=== PATIENT | female | born 1960 | race Caucasian/White ===

== ENCOUNTER 2018-08-17 13:35 | Observation (INO) | payer SELFPAY ==
[2018-08-17 15:17] LABS: BASO # 0.06 K/mm3 (0.0-2.0); BASO % 1.5 % (0.0-3.0); EOS # 0.1 (0.0-0.7); EOS % 2.2 % (1.5-5.0); GRAN # 1.57 (1.4-6.5); GRAN % 38.7 % (50.0-68.0); HEMOGLOBIN 14.1 g/dL (12.0-16.0); LYMPH # 2.1 (1.2-3.4); LYMPH % 51.2 % (22.0-35.0); MEAN CELL VOLUME 87.2 fl (80.0-105.0); MEAN CORPUSCULAR HGB CONC 33.3 g/dl (31.0-37.0); MEAN PLATELET VOLUME 12.9 fl (7.0-11.0); MONO # 0.3 (0.1-0.6); MONO % 6.4 % (1.0-6.0); RBC 4.86 10^6/uL (3.5-6.1); RED CELL DISTRIBUTION WIDTH 12.4 % (11.5-14.5); WHITE BLOOD COUNT 4.1 10^3/uL (4.5-11.0)
--- NOTE | 2018-08-17 15:20 | CT ---
Date of service: 08/17/2018 PROCEDURE: CT HEAD WITHOUT CONTRAST. HISTORY: fall LOC COMPARISON: 01/04/2015 TECHNIQUE: Axial computed tomography images were obtained through the head/brain without intravenous contrast. Radiation dose: Total exam DLP = 925.37 mGy-cm. This CT exam was performed using one or more of the following dose reduction techniques: Automated exposure control, adjustment of the mA and/or kV according to patient size, and/or use of iterative reconstruction technique. FINDINGS: HEMORRHAGE: No intracranial hemorrhage. BRAIN: No mass effect or edema. No atrophy or chronic microvascular ischemic changes. VENTRICLES: Unremarkable. No hydrocephalus. CALVARIUM: Unremarkable. PARANASAL SINUSES: Unremarkable as visualized. No significant inflammatory changes. MASTOID AIR CELLS: Unremarkable as visualized. No inflammatory changes. OTHER FINDINGS: None. IMPRESSION: No acute intracranial findings
[2018-08-17 15:28] LABS: ALB/GLOB RATIO 1.3 (1.1-1.8); ALBUMIN 4.6 g/dL (3.0-4.8); ALT/SGPT 32 U/L (7-56); AST/SGOT 26 U/L (14-36); BLOOD UREA NITROGEN 6 mg/dL (7-21); CALCIUM 9.8 mg/dL (8.4-10.5); GFR NON-AFRICAN AMERICAN > 60
[2018-08-17] MEDS ORDERED: Iohexol 350 MG/100 ML VIAL ONE (15:39)
--- NOTE | 2018-08-17 15:40 | ED PDOC ---
Arrival/HPI - General Historian: Patient - History of Present Illness Narrative History of Present Illness (Text): pt is a 58 yr old F with no PMH who has not visited a doctor for many years who presents with numerous complaints including ACUÑA, intermittent weakness of all four extremities, intermittent dizziness and recent fall with LOC, intermittent numbness and tingling of extremities. She additionally complains of intermittent neck pain, chest pain, SOB, "seeing spots" when dizzy. Patient states she has a family history of stroke and cardiovascular illness. She currently endorses only headache. She currently denies any facial droop, speech difficulty, confusion, chest pain, shortness of breath, abdominal pain, dysuria, stool changes and extremity pain/weakness. 08/17/18 15:35 Time/Duration: > month (3) Symptom Course: Intermittent <Krista Keyes - Last Filed: 08/17/18 17:40> <Sheldon Baca - Last Filed: 08/17/18 19:29> - General Chief Complaint: Headache Time Seen by Provider: 08/17/18 13:41 Past Medical History - Provider Review Nursing Documentation Reviewed: Yes - Past History Past History: No Previous - Tetanus Immunization Tetanus Immunization: Unknown - Reproductive Menopause: Yes - Past Medical History Past Medical History: No Previous - Cardiac Hx Cardiac Disorders: Yes Hx Hypertension: Yes - Pulmonary Hx Respiratory Disorders: No - Neurological Hx Neurological Disorder: No - HEENT Hx HEENT Disorder: No - Renal Hx Renal Disorder: Yes Hx Kidney Stones: Yes (LEFT) - Endocrine/Metabolic Hx Endocrine Disorders: No - Hematological/Oncological Hx Blood Disorders: No - Integumentary Hx Dermatological Disorder: No - Musculoskeletal/Rheumatological Hx Musculoskeletal Disorders: No Hx Falls: Yes (last tuesday, lost LOC) - Genitourinary/Gynecological Hx Genitourinary Disorders: No (BX LEFT BREAST MASS) - Psychiatric Hx Psychophysiologic Disorder: No Hx Substance Use: No - Past Surgical History Past Surgical History: No Previous - Surgical History Hx Cardiac Catheterization: Yes - Anesthesia Hx Anesthesia: Yes Hx Anesthesia Reactions: No Hx Malignant Hyperthermia: No - Suicidal Assessment Feels Threatened In Home Enviroment: No <Krista Keyes - Last Filed: 08/17/18 17:40> Family/Social History - Physician Review Nursing Documentation Reviewed: Yes Family/Social History: CVA/TIA, CAD/IN Smoking Status: Never Smoked Hx Alcohol Use: No Hx Substance Use: No Hx Substance Use Treatment: No <Krista Keyes - Last Filed: 08/17/18 17:40> Allergies/Home Meds <Krista Keyes - Last Filed: 08/17/18 17:40> <Sheldon Baca - Last Filed: 08/17/18 19:29> Allergies/Adverse Reactions: Allergies No Known Allergies Allergy (Verified 01/04/15 16:53) Home Medications: Home Meds Medication Instructions Recorded Confirmed No Known Home Med 01/04/15 08/17/18 Review of Systems - Physician Review All systems were reviewed & negative as marked: Yes - Review of Systems Constitutional: Normal. absent: Fevers Eyes: absent: Vision Changes (not currently) Respiratory: absent: SOB, Cough Cardiovascular: absent: Chest Pain Gastrointestinal: absent: Abdominal Pain, Nausea, Vomiting Musculoskeletal: Neck Pain. absent: Back Pain Skin: absent: Rash, Skin Lesions, Laceration, Abscess Neurological: Headache. absent: Dizziness, Focal Weakness, Gait Changes, Disequilibrium <Krista Keyes - Last Filed: 08/17/18 17:40> Physical Exam Vital Signs Reviewed: Yes Vital Signs Temp Pulse Resp BP Pulse Ox 08/17/18 14:05 98.2 F 67 18 159/83 H 98 Temperature: Afebrile Blood Pressure: Hypertensive Pulse: Regular Respiratory Rate: Normal Appearance: Positive for: Well-Appearing, Non-Toxic, Comfortable Pain Distress: None Mental Status: Positive for: Alert and Oriented X 3 - Systems Exam Head: Present: Atraumatic, Normocephalic Extroacular Muscles: Present: EOMI Mouth: Present: Moist Mucous Membranes Neck: Present: Normal Range of Motion. No: Meningeal Signs, MIDLINE TENDERNESS, Paraspinal Tenderness Respiratory/Chest: Present: Clear to Auscultation. No: Respiratory Distress, Accessory Muscle Use Cardiovascular: Present: Regular Rate and Rhythm, Normal S1, S2. No: Murmurs Abdomen: No: Tenderness, Distention, Peritoneal Signs Upper Extremity: Present: Normal Inspection, Normal ROM, NORMAL PULSES, Neurovascularly Intact, Capillary Refill < 2s, Norm 2-Pt Discrimination. No: Cyanosis, Edema, Tenderness, Swelling, Erythema, Deformity Lower Extremity: Present: Normal Inspection, NORMAL PULSES, Normal ROM, Neurova scularly Intact, Capillary Refill < 2 s. No: Edema, CALF TENDERNESS, Cyanosis, Georgie's Sign, Swelling, Erythema, Deformity Neurological: Present: GCS=15, CN II-XII Intact, Speech Normal, Motor Func Grossly Intact, Normal Sensory Function, Gait Normal, Normal 2Pt Descrimination Skin: Present: Warm, Dry, Normal Color. No: Rashes Psychiatric: Present: Alert, Oriented x 3, Normal Insight, Normal Concentration <Krista Keyes - Last Filed: 08/17/18 17:40> Vital Signs Temp Pulse Resp BP Pulse Ox 08/17/18 19:03 77 20 126/85 100 08/17/18 17:36 98.3 F 86 20 124/74 99 08/17/18 16:39 98.7 F 90 18 124/57 L 100 08/17/18 14:05 98.2 F 67 18 159/83 H 98 <Sheldon Baca - Last Filed: 08/17/18 19:29> Medical Decision Making ED Course and Treatment: Impression: 58 yr old female with recent LOC d/t dizziness and weakness, no current dizziness/weakness, current ACUÑA Plan: CBC CMP CT head CTA head and neck reassess and dispo 08/17/18 15:[address] Mccoy, agreed to evaluate for admission 08/17/18 17:02 - Lab Interpretations Lab Results: Total Bilirubin 0.4 mg/dL (0.2-1.3) 08/17/18 15:13 AST 26 U/L (14-36) 08/17/18 15:13 ALT 32 U/L (7-56) 08/17/18 15:13 Alkaline Phosphatase 76 U/L (38-126) 08/17/18 15:13 Total Protein 8.2 g/dL (5.8-8.3) 08/17/18 15:13 Albumin 4.6 g/dL (3.0-4.8) 08/17/18 15:13 Globulin 3.6 gm/dL 08/17/18 15:13 Albumin/Globulin Ratio 1.3 (1.1-1.8) 08/17/18 15:13 08/17/18 15:13 08/17/18 15:13 Lab Results 08/17/18 15:13: Sodium 140, Potassium 3.8, Chloride 104, Carbon Dioxide 26, Anion Gap 13, BUN 6 L, Creatinine 0.6 L, Est GFR ( Amer) > 60, Est GFR ( Non-Af Amer) > 60, Random Glucose 101, Calcium 9.8, Phosphorus 3.6, Magnesium 2.0, Total Bilirubin 0.4, AST 26, ALT 32, Alkaline Phosphatase 76, Total Protein 8.2, Albumin 4.6, Globulin 3.6, Albumin/Globulin Ratio 1.3 08/17/18 15:13: WBC 4.1 L, RBC 4.86, Hgb 14.1, Hct 42.4, MCV 87.2, MCH 29.0, MCHC 33.3, RDW 12.4, Plt Count 258, MPV 12.9 H, Gran % 38.7 L, Lymph % (Auto) 51.2 H, [place] % (Auto) 6.4 H, Eos % (Auto) 2.2, Baso % (Auto) 1.5, Gran # 1.57, Lymph # (Auto) 2.1, [place] # (Auto) 0.3, Eos # (Auto) 0.1, Baso # (Auto) 0.06 - RAD Interpretation Narrative RAD Interpretations (Text): 08/17/18 15:[address] 08/17/18 14:29 IMPRESSION: No acute intracranial findings Radiology Results Head CT 08/17/18 14:29 IMPRESSION: No acute intracranial findings Head/Neck CTA 08/17/18 15:17 IMPRESSION: Normal CT Angiography of the neck. CT Angiography of the Brain. HISTORY: dizziness, weakness COMPARISON: None available. TECHNIQUE: CT angiography of the intracranial arteries was performed. Coronal and sagittal maximum intensity projection reformated images were generated. Radiation dose: Total exam DLP = 402.04 mGy-cm. This CT exam was performed using one or more of the following dose reduction techniques: Automated exposure control, adjustment of the mA and/or kV according to patient size, and/or use of iterative reconstruction technique. FINDINGS: INTERNAL CEREBRAL ARTERIES: Unremarkable. The skull base, petrous, cavernous and supraclinoid segments are bilaterally widely patent. ANTERIOR CEREBRAL ARTERIES: Unremarkable. A1 and A2 segments are widely patent. Smaller distal branches unremarkable, as visualized. MIDDLE CEREBRAL ARTERIES: Unremarkable. M1 and M2 segments are widely patent. Perisylvian branches grossly symmetric. POSTERIOR CIRCULATION: Basilar Artery: Unremarkable. Distal Vertebral Arteries: Unremarkable. Posterior Cerebral Arteries: Unremarkable. Posterior Inferior Cerebellar Arteries: Unremarkable. ANEURYSM/ VASCULAR MALFORMATIONS: None. OTHER FINDINGS: None. IMPRESSION: Unremarkable CT Angiography of the Brain. 08/17/18 18:30 Radiology Orders: 08/17/18 14:29 HEAD W/O CONTRAST [CT] Stat 08/17/18 15:17 CTA HEAD & NECK BUNDLE [CT] Stat <Krista Keyes - Last Filed: 08/17/18 17:40> ED Course and Treatment: 08/17/18 19:26 Impression: 58 year old female presents to emergency department complaining of ACUÑA, intermittent weakness of all four extremities, intermittent dizziness and recent fall with LOC, intermittent numbness and tingling of extremities. In agreement with resident note which contains more details about the patient. Patient seen and evaluated with resident. Came up with plan and treatment together. Plan: -- Antivert -- Lovenox -- Labs -- Rehab (Physical Therapy) -- Urinalysis -- US - Lab Interpretations Lab Results: Troponin I < 0.01 ng/mL 08/17/18 19:00 Total Bilirubin 0.4 mg/dL (0.2-1.3) 08/17/18 15:13 AST 26 U/L (14-36) 08/17/18 15:13 ALT 32 U/L (7-56) 08/17/18 15:13 Alkaline Phosphatase 76 U/L (38-126) 08/17/18 15:13 Total Protein 8.2 g/dL (5.8-8.3) 08/17/18 15:13 Albumin 4.6 g/dL (3.0-4.8) 08/17/18 15:13 Globulin 3.6 gm/dL 08/17/18 15:13 Albumin/Globulin Ratio 1.3 (1.1-1.8) 08/17/18 15:13 Urine Color Light yellow (YELLOW) 08/17/18 18:45 Urine Appearance Clear (CLEAR) 08/17/18 18:45 Urine pH 7.0 (4.7-8.0) 08/17/18 18:45 Ur Specific Bruce 1.010 (1.005-1.035) 08/17/18 18:45 Urine Protein Negative mg/dL (<30 mg/dL) 08/17/18 18:45 Urine Glucose (UA) Negative mg/dL (NEGATIVE) 08/17/18 18:45 Urine Ketones Negative mg/dL (NEGATIVE) 08/17/18 18:45 Urine Blood Negative (NEGATIVE) 08/17/18 18:45 Urine Nitrate Negative (NEGATIVE) 08/17/18 18:45 Urine Bilirubin Negative (NEGATIVE) 08/17/18 18:45 Urine Urobilinogen 0.2 E.U./dL (<1 E.U./dL) 08/17/18 18:45 Ur Leukocyte Esterase Negative Dick/uL (NEGATIVE) 08/17/18 18:45 - RAD Interpretation Radiology Orders: 08/17/18 14:29 HEAD W/O CONTRAST [CT] Stat 08/17/18 15:17 CTA HEAD & NECK BUNDLE [CT] Stat - Medication Orders Current Medication Orders: Enoxaparin Sodium (Lovenox) 40 mg SC DAILY KI; Protocol Meclizine HCl (Antivert) 12.5 mg PO Q6H PRN PRN Reason: Dizziness Discontinued Medications Acetaminophen (Tylenol 325mg Tab) 650 mg PO STAT STA Stop: 08/17/18 16:03 Last Admin: 08/17/18 17:23 Dose: 650 mg MAR Pain/Vitals Document 08/17/18 17:23 DM (Rec: 08/17/18 17:24 DM [id number]) Pain Reassessment Is This A Pain ReAssessment? No Presence of Pain Presence of Pain Yes Pain Scale Used Protocol: PSCALES Pain Scale Used Numeric Location Left, Right or Bilateral Right Upper or Lower Lower Pain Location Body Site Arm Intensity 2 Sodium Chloride (Sodium Chloride 0.9%) 1,000 mls @ 999 mls/hr IV .Q1H1M STA Stop: 08/17/18 17:02 Last Admin: 08/17/18 17:24 Dose: 999 mls/hr eMAR Start Stop Document 08/17/18 17:24 DM (Rec: 08/17/18 17:25 DM [facility] [id number]) Intravenous Solution Start Date 08/17/18 Start Time 17:25 Metoclopramide HCl (Reglan) 10 mg IVP ACHS KI Last Admin: 08/17/18 18:55 Dose: Not Given Non-Admin Reason: Patient Refused IVP Administration Document 08/17/18 18:55 DM (Rec: 08/17/18 18:55 DM [facility] [id number]) Charges for Administration # of IVP Administrations 0 <Sheldon Baca - Last Filed: 08/17/18 19:29> Disposition/Present on Arrival - Present on Arrival Any Indicators Present on Arrival: No History of DVT/PE: No History of Uncontrolled Diabetes: No Urinary Catheter: No History of Decub. Ulcer: No History Surgical Site Infection Following: None - Disposition Have Diagnosis and Disposition been Completed?: Yes Disposition Time: 17:02 Patient Plan: Admission <Krista Keyes - Last Filed: 08/17/18 17:40> <Sheldon Baca - Last Filed: 08/17/18 19:29> - Disposition Diagnosis: Paresthesia Disposition: HOSPITALIZED Patient Problems: Current Active Problems Problem Status Onset Paresthesia Acute Condition: STABLE
[2018-08-17] MEDS ORDERED: Sodium Chloride 0.9% 1,000 ML IV STA (16:02)
--- NOTE | 2018-08-17 16:38 | CT ---
Date of service: 08/17/2018 PROCEDURE: CT Angiography of the neck with contrast HISTORY: dizziness, weakness COMPARISON: None. TECHNIQUE: Contiguous axial images of the neck were obtained from the level of the skull-base to the superior mediastinum in the arteriographic phase of enhancement. Coronal and sagittal reformats or also generated. IV contrast dose: 100 cc of Omni 350 Radiation dose: Total exam DLP = 402.04 mGy-cm. This CT exam was performed using one or more of the following dose reduction techniques: Automated exposure control, adjustment of the mA and/or kV according to patient size, and/or use of iterative reconstruction technique. FINDINGS: RIGHT CAROTID ARTERIES: Common Carotid Artery: Normal. Carotid Bifurcation: Normal. Internal Carotid Artery:Normal. External Carotid Artery (proximal branches): Normal. LEFT CAROTID ARTERIES: Common Carotid Artery: Normal. Carotid Bifurcation: Normal. Internal Carotid Artery:Normal. External Carotid Artery (proximal branches): Normal. VERTEBRAL ARTERIES: Right Vertebral Artery: Normal. Left Vertebral Artery: Normal. OTHER FINDINGS: no aortic atherosclerotic calcification or mural plaque present. IMPRESSION: Normal CT Angiography of the neck. CT Angiography of the Brain. HISTORY: dizziness, weakness COMPARISON: None available. TECHNIQUE: CT angiography of the intracranial arteries was performed. Coronal and sagittal maximum intensity projection reformated images were generated. Radiation dose: Total exam DLP = 402.04 mGy-cm. This CT exam was performed using one or more of the following dose reduction techniques: Automated exposure control, adjustment of the mA and/or kV according to patient size, and/or use of iterative reconstruction technique. FINDINGS: INTERNAL CEREBRAL ARTERIES: Unremarkable. The skull base, petrous, cavernous and supraclinoid segments are bilaterally widely patent. ANTERIOR CEREBRAL ARTERIES: Unremarkable. A1 and A2 segments are widely patent. Smaller distal branches unremarkable, as visualized. MIDDLE CEREBRAL ARTERIES: Unremarkable. M1 and M2 segments are widely patent. Perisylvian branches grossly symmetric. POSTERIOR CIRCULATION: Basilar Artery: Unremarkable. Distal Vertebral Arteries: Unremarkable. Posterior Cerebral Arteries: Unremarkable. Posterior Inferior Cerebellar Arteries: Unremarkable. ANEURYSM/ VASCULAR MALFORMATIONS: None. OTHER FINDINGS: None. IMPRESSION: Unremarkable CT Angiography of the Brain.
--- NOTE | 2018-08-17 17:12 | CP.PCM.HP ---
<Sheldon Baca - Last Filed: 08/17/18 19:26> Meds Allergies/Adverse Reactions: Allergies Allergy/AdvReac Type Severity Reaction Status Date / Time No Known Allergies Allergy Verified 01/04/15 16:53 Results - Vital Signs Recent Vital Signs: Last Vital Signs Temp 98.3 F 08/17/18 17:36 Pulse 77 08/17/18 19:03 Resp 20 08/17/18 19:03 BP 126/85 08/17/18 19:03 Pulse Ox 100 08/17/18 19:03 - Labs Result Diagrams: 08/17/18 15:13 08/17/18 15:13 Labs: Laboratory Results - last 24 hr 08/17/18 08/17/18 08/17/18 15:13 15:13 18:45 WBC 4.1 L RBC 4.86 Hgb 14.1 Hct 42.4 MCV 87.2 MCH 29.0 MCHC 33.3 RDW 12.4 Plt Count 258 MPV 12.9 H Gran % 38.7 L Lymph % (Auto) 51.2 H [place] % (Auto) 6.4 H Eos % (Auto) 2.2 Baso % (Auto) 1.5 Gran # 1.57 Lymph # (Auto) 2.1 [place] # (Auto) 0.3 Eos # (Auto) 0.1 Baso # (Auto) 0.06 Sodium 140 Potassium 3.8 Chloride 104 Carbon Dioxide 26 Anion Gap 13 BUN 6 L Creatinine 0.6 L Est GFR ( Amer) > 60 Est GFR (Non-Af Amer) > 60 Random Glucose 101 Calcium 9.8 Phosphorus 3.6 Magnesium 2.0 Total Bilirubin 0.4 AST 26 ALT 32 Alkaline Phosphatase 76 Troponin I Total Protein 8.2 Albumin 4.6 Globulin 3.6 Albumin/Globulin Ratio 1.3 Urine Color Light yellow Urine Appearance Clear Urine pH 7.0 Ur Specific [place] 1.010 Urine Protein Negative Urine Glucose (UA) Negative Urine Ketones Negative Urine Blood Negative Urine Nitrate Negative Urine Bilirubin Negative Urine Urobilinogen 0.2 Ur Leukocyte Esterase Negative 08/17/18 19:00 WBC RBC Hgb Hct MCV MCH MCHC RDW Plt Count MPV Gran % Lymph % (Auto) [place] % (Auto) Eos % (Auto) Baso % (Auto) Gran # Lymph # (Auto) [place] # (Auto) Eos # (Auto) Baso # (Auto) Sodium Potassium Chloride Carbon Dioxide Anion Gap BUN Creatinine Est GFR ( Amer) Est GFR (Non-Af Amer) Random Glucose Calcium Phosphorus Magnesium Total Bilirubin AST ALT Alkaline Phosphatase Troponin I < 0.01 Total Protein Albumin Globulin Albumin/Globulin Ratio Urine Color Urine Appearance Urine pH Ur Specific [place] Urine Protein Urine Glucose (UA) Urine Ketones Urine Blood Urine Nitrate Urine Bilirubin Urine Urobilinogen Ur Leukocyte Esterase <Robert Lujan L - Last Filed: 08/17/18 20:02> History of Present Illness - History of Present Illness History of Present Illness: Resident History & Physical for Hospitalist Service Patient is a 58 year old female with past medical history of CAD s/p cardiac cath and herniated cervical disc presenting with chief complaint of syncope that happened a week prior. Patient states that she was walking to her kitchen when she felt lightheaded and lost consciousness. She remembers waking up on the floor and feeling weak for several hours after. She denies tongue biting, bladder or bowel incontinence. She admits to occasionally seeing flashing lights, headache, numbness and tingling of upper and lower extremities. Denies any aggravating or alleviating factors. Denies fever, chills, chest pain, shortness of breath, abdominal pain, constipation, diarrhea, dysuria. As per family at bedside patient has been checking her blood pressure the past few days and SBP has been in 160s. PMH: CAD, herniated disc PSH: cardiac cath, breast biopsy SHx: denies alcohol, tobacco, illicit drug use FHx: father (HTN, stroke) Allergies: NKDA Home meds: none PMD: none Present on Admission - Present on Admission Any Indicators Present on Admission: No Review of Systems - Review of Systems All systems: reviewed and no additional remarkable complaints except (as stated in HPI) Past Patient History - Tetanus Immunizations Tetanus Immunization: Unknown - Past Social History Smoking Status: Never Smoked - CARDIAC Hx Cardiac Disorders: Yes Hx Hypertension: Yes - PULMONARY Hx Respiratory Disorders: No - NEUROLOGICAL Hx Neurological Disorder: No - HEENT Hx HEENT Problems: No - RENAL Hx Chronic Kidney Disease: Yes Hx Kidney Stones: Yes (LEFT) - ENDOCRINE/METABOLIC Hx Endocrine Disorders: No - HEMATOLOGICAL/ONCOLOGICAL Hx Blood Disorders: No - INTEGUMENTARY Hx Dermatological Problems: No - MUSCULOSKELETAL/RHEUMATOLOGICAL Hx Musculoskeletal Disorders: No Hx Falls: Yes (last tuesday, lost LOC) - GENITOURINARY/GYNECOLOGICAL Hx Genitourinary Disorders: No (BX LEFT BREAST MASS) - PSYCHIATRIC Hx Psychophysiologic Disorder: No Hx Substance Use: No - SURGICAL HISTORY Hx Cardiac Catheterization: Yes - ANESTHESIA Hx Anesthesia: Yes Hx Anesthesia Reactions: No Hx Malignant Hyperthermia: No Results - Vital Signs Recent Vital Signs: Last Vital Signs Temp 98.7 F 08/17/18 16:39 Pulse 90 08/17/18 16:39 Resp 18 08/17/18 16:39 BP 124/57 L 08/17/18 16:39 Pulse Ox 100 08/17/18 16:39 - Labs Result Diagrams: 08/17/18 15:13 08/17/18 15:13 Labs: Laboratory Results - last 24 hr 08/17/18 08/17/18 15:13 15:13 WBC 4.1 L RBC 4.86 Hgb 14.1 Hct 42.4 MCV 87.2 MCH 29.0 MCHC 33.3 RDW 12.4 Plt Count 258 MPV 12.9 H Gran % 38.7 L Lymph % (Auto) 51.2 H [place] % (Auto) 6.4 H Eos % (Auto) 2.2 Baso % (Auto) 1.5 Gran # 1.57 Lymph # (Auto) 2.1 [place] # (Auto) 0.3 Eos # (Auto) 0.1 Baso # (Auto) 0.06 Sodium 140 Potassium 3.8 Chloride 104 Carbon Dioxide 26 Anion Gap 13 BUN 6 L Creatinine 0.6 L Est GFR ( Amer) > 60 Est GFR (Non-Af Amer) > 60 Random Glucose 101 Calcium 9.8 Phosphorus 3.6 Magnesium 2.0 Total Bilirubin 0.4 AST 26 ALT 32 Alkaline Phosphatase 76 Total Protein 8.2 Albumin 4.6 Globulin 3.6 Albumin/Globulin Ratio 1.3 Assessment & Plan - Assessment and Plan (Free Text) Assessment: Patient is a 58 year old female with past medical history of CAD s/p cardiac cath presenting with chief complaint of syncope. Plan: Syncope - Head CT shows no acute intracranial findings - Head/neck CTA unremarkable - EKG shows NSR - ECHO 2014 showed EF 67%, normal LV function - followup repeat ECHO, EEG, orthostatics, TSH - PT eval Numbness - cervical spine CT from 2014 showed disc bulge at C5-6 with bilateral spondylitic foraminal stenosis secondary to uncinate hypertrophy - B12, folate - Neurochecks - Neurology consulted. Appreciate recs. PPX - Lovenox 40 mg SC daily, SCDs Case discussed with Dr. Nadine Lujan PGY-1 - Date & Time Date: 08/17/18 Time: 17:07 <Max Mccyo - Last Filed: 08/18/18 17:46> Results - Vital Signs Recent Vital Signs: Last Vital Signs Temp 97.5 F L 08/18/18 06:00 Pulse 63 08/18/18 10:00 Resp 20 08/18/18 06:00 BP 123/80 08/18/18 06:00 Pulse Ox 99 08/18/18 06:00 - Labs Result Diagrams: 08/18/18 06:00 08/18/18 06:00 Labs: Laboratory Results - last 24 hr 08/17/18 08/17/18 08/18/18 18:45 19:00 06:00 WBC 4.4 L RBC 4.43 Hgb 12.4 Hct 39.0 MCV 88.0 MCH 28.0 MCHC 31.8 RDW 12.5 Plt Count 244 MPV 12.5 H Gran % 28.1 L Lymph % (Auto) 58.4 H [place] % (Auto) 8.7 H Eos % (Auto) 3.4 Baso % (Auto) 1.4 Gran # 1.23 L Lymph # (Auto) 2.6 [place] # (Auto) 0.4 Eos # (Auto) 0.2 Baso # (Auto) 0.06 Sodium Potassium Chloride Carbon Dioxide Anion Gap BUN Creatinine Est GFR ( Amer) Est GFR (Non-Af Amer) Random Glucose Hemoglobin A1c Calcium Total Bilirubin AST ALT Alkaline Phosphatase Troponin I < 0.01 Total Protein Albumin Globulin Albumin/Globulin Ratio Triglycerides Cholesterol LDL Cholesterol Direct HDL Cholesterol Vitamin B12 Folate > 20.0 TSH 3rd Generation Urine Color Light yellow Urine Appearance Clear Urine pH 7.0 Ur Specific [place] 1.010 Urine Protein Negative Urine Glucose (UA) Negative Urine Ketones Negative Urine Blood Negative Urine Nitrate Negative Urine Bilirubin Negative Urine Urobilinogen 0.2 Ur Leukocyte Esterase Negative 08/18/18 08/18/18 08/18/18 06:00 06:00 06:00 WBC RBC Hgb Hct MCV MCH MCHC RDW Plt Count MPV Gran % Lymph % (Auto) [place] % (Auto) Eos % (Auto) Baso % (Auto) Gran # Lymph # (Auto) [place] # (Auto) Eos # (Auto) Baso # (Auto) Sodium 140 Potassium 4.3 Chloride 108 H Carbon Dioxide 27 Anion Gap 9 L BUN 7 Creatinine 0.7 Est GFR ( Amer) > 60 Est GFR (Non-Af Amer) > 60 Random Glucose 96 Hemoglobin A1c 5.9 Calcium 9.4 Total Bilirubin 0.3 AST 20 ALT 31 Alkaline Phosphatase 60 Troponin I Total Protein 6.9 Albumin 3.9 Globulin 3.0 Albumin/Globulin Ratio 1.3 Triglycerides 77 Cholesterol 180 LDL Cholesterol Direct 105 HDL Cholesterol 47 Vitamin B12 430 Folate TSH 3rd Generation 5.74 H Urine Color Urine Appearance Urine pH Ur Specific [place] Urine Protein Urine Glucose (UA) Urine Ketones Urine Blood Urine Nitrate Urine Bilirubin Urine Urobilinogen Ur Leukocyte Esterase Attending/Attestation - Attestation I have personally seen and examined this patient.: Yes I have fully participated in the care of the patient.: Yes I have reviewed all pertinent clinical information: Yes Notes (Text): 08/18/18 17:46 Attending note; Patient seen and examined with resident in the ER. Patient's brothers by the bedside. Patient is alert and awake. Complaining of nonspecific numbness. Complaining of neck pain. Patient is a 58 year old female with past medical history herniated cervical disc presenting with chief complaint of syncope that happened a week prior. Patient states that she was walking to her kitchen when she felt lightheaded and lost consciousness. Patient has complained of nonspecific numbness and weakness all over her body. 1. Syncope; patient complains of generalized nonspecific symptoms. Questionable loss of consciousness. No history of injury, tongue bite or incontinence. CT head is negative. CT of head and neck is negative. Neurology evaluation requested. Possible anxiety related issues suspected. 2. Orthostatic blood pressure ordered. EKG normal. Troponin 1 negative. Monitor closely in telemetry. Upon discharge patient will follow-up with PMD Dr. Ibarra.
[2018-08-17 18:54] LABS: URINE BILIRUBIN NEGATIVE (NEGATIVE); URINE BLOOD NEGATIVE (NEGATIVE); URINE GLUCOSE (UA) NEGATIVE (NEGATIVE); URINE LEUKOCYTE ESTERASE NEGATIVE Leu/uL (NEGATIVE); URINE PROTEIN NEGATIVE mg/dL (<30 mg/dL); URINE UROBILINOGEN 0.2 E.U./dL (<1 E.U./dL)
[2018-08-17 19:02] LABS: URINE APPEARANCE CLEAR (CLEAR); URINE COLOR LIGHT YELLOW (YELLOW)
[2018-08-17 19:24] LABS: TROPONIN I < 0.01 ng/mL
--- NOTE | 2018-08-17 20:18 | CARD ---
APPROVED REPORT Date of service: 08/17/2018 EKG Measurement Heart [id number] <Conclusion> Normal sinus rhythm Normal Electrocardiogram
[2018-08-18 01:46] VITALS: BMI 29.5
[2018-08-18 06:44] LABS: BASO # 0.06 K/mm3 (0.0-2.0); BASO % 1.4 % (0.0-3.0); EOS # 0.2 (0.0-0.7); EOS % 3.4 % (1.5-5.0); GRAN # 1.23 (1.4-6.5); GRAN % 28.1 % (50.0-68.0); HEMOGLOBIN 12.4 g/dL (12.0-16.0); LYMPH # 2.6 (1.2-3.4); LYMPH % 58.4 % (22.0-35.0); MEAN CORPUSCULAR HGB CONC 31.8 g/dl (31.0-37.0); MEAN PLATELET VOLUME 12.5 fl (7.0-11.0); MONO # 0.4 (0.1-0.6); MONO % 8.7 % (1.0-6.0); RBC 4.43 10^6/uL (3.5-6.1); RED CELL DISTRIBUTION WIDTH 12.5 % (11.5-14.5); WHITE BLOOD COUNT 4.4 10^3/uL (4.5-11.0)
[2018-08-18 07:09] VITALS: BP 123/80; RESP 20; TEMP 97.5; O2SAT 99
[2018-08-18 07:13] LABS: LDL CHOLESTEROL 105 mg/dL (0-129)
[2018-08-18 07:26] LABS: ALB/GLOB RATIO 1.3 (1.1-1.8); ALBUMIN 3.9 g/dL (3.0-4.8); ALT/SGPT 31 U/L (7-56); AST/SGOT 20 U/L (14-36); BLOOD UREA NITROGEN 7 mg/dL (7-21); CALCIUM 9.4 mg/dL (8.4-10.5); GFR NON-AFRICAN AMERICAN > 60; HDL CHOLESTEROL 47 mg/dL (29-60)
[2018-08-18] MEDS ORDERED: Enoxaparin 40 mg Syringe SC SCH (10:00)
--- NOTE | 2018-08-18 10:22 | US ---
HISTORY: Leg pain and swelling. Evaluate for DVT PHYSICIAN(S): Tashi Gloria MD. TECHNIQUE: Duplex sonography and color-flow Doppler with graded compression were used to evaluate the deep venous systems of both lower extremities. FINDINGS: The visualized deep venous systems of both lower extremities are sonographically normal and compressible. Normal wave forms and augmentation are seen. There is no sonographic evidence for deep venous thrombosis in the visualized segments of both lower extremities. IMPRESSION: No sonographic evidence for deep venous thrombosis in the visualized segments of both lower extremities.
--- NOTE | 2018-08-18 10:24 | CP.PCM.CON ---
<River Valladares - Last Filed: 08/18/18 16:58> History of Present Illness - History of Present Illness History of Present Illness: Patient is a 58 year old female with past medical history of CAD s/p cardiac cath and herniated cervical disc presenting with complaints of syncope a week prior as well as 8/10 headache, heaviness, numbness and tingling tingling down upper and lower extremities bilaterally since last week. Patient states that she was walking to her kitchen when she felt lightheaded and lost consciousness and later awakening on the floor with her dishes all over her. Patient states she has experienced many similar episodes in the past. She denies tongue biting, bladder or bowel incontinence. She admits to occasionally seeing flashing lights, headache, numbness and tingling of upper and lower extremities. Denies any aggravating or alleviating factors. Denies fever, chills, chest pain, shortness of breath, abdominal pain, constipation, diarrhea, dysuria. As per family at bedside patient has been checking her blood pressure the past few days and SBP has been in 160s for which brother hs been giving his own BP medications to control. PMH: CAD, herniated disc PSH: cardiac cath, breast biopsy SHx: denies alcohol, tobacco, illicit drug use FHx: father (HTN, stroke) Allergies: NKDA Home meds: none PMD: none Review of Systems - Review of Systems All systems: reviewed and no additional remarkable complaints except (what's mentioned in HPI) Past Patient History - Tetanus Immunizations Tetanus Immunization: Unknown - Past Social History Smoking Status: Never Smoked - CARDIAC Hx Cardiac Disorders: Yes Hx Hypertension: Yes - PULMONARY Hx Respiratory Disorders: No - NEUROLOGICAL Hx Neurological Disorder: No - HEENT Hx HEENT Problems: No - RENAL Hx Kidney Stones: Yes (LEFT) - ENDOCRINE/METABOLIC Hx Endocrine Disorders: No - HEMATOLOGICAL/ONCOLOGICAL Hx Blood Disorders: No - INTEGUMENTARY Hx Dermatological Problems: No - MUSCULOSKELETAL/RHEUMATOLOGICAL Hx Musculoskeletal Disorders: No Hx Falls: Yes (syncopal episode on Tuesday08/12/18) - GENITOURINARY/GYNECOLOGICAL Hx Genitourinary Disorders: No (BX LEFT BREAST MASS) - PSYCHIATRIC Hx Psychophysiologic Disorder: No Hx Substance Use: No - SURGICAL HISTORY Hx Surgeries: Yes (CARDIAC CATH) Hx Cardiac Catheterization: Yes - ANESTHESIA Hx Anesthesia: Yes Hx Anesthesia Reactions: No Hx Malignant Hyperthermia: No Meds Home Medications: Home Medication List Medication Instructions Recorded Confirmed Type RX: Magnesium Oxide [Magnesium] 400 mg PO BID #60 capsule 08/18/18 Rx Allergies/Adverse Reactions: Allergies Allergy/AdvReac Type Severity Reaction Status Date / Time No Known Allergies Allergy Verified 01/04/15 16:53 - Medications Medications: Current Medications Enoxaparin Sodium (Lovenox) 40 mg SC DAILY KI; Protocol Last Admin: 08/18/18 09:17 Dose: 40 mg Meclizine HCl (Antivert) 12.5 mg PO Q6H PRN PRN Reason: Dizziness Last Admin: 08/18/18 09:17 Dose: 12.5 mg Physical Exam - Head Exam Head Exam: ATRAUMATIC, NORMAL INSPECTION, NORMOCEPHALIC - Eye Exam Eye Exam: EOMI, Normal appearance - ENT Exam ENT Exam: Mucous Membranes Moist - Neck Exam Neck exam: Positive for: Normal Inspection - Respiratory Exam Respiratory Exam: Clear to Auscultation Bilateral, NORMAL BREATHING PATTERN - Cardiovascular Exam Cardiovascular Exam: REGULAR RHYTHM, +S1, +S2 - GI/Abdominal Exam GI & Abdominal Exam: Normal Bowel Sounds - Extremities Exam Extremities exam: Positive for: normal inspection - Back Exam Back exam: NORMAL INSPECTION - Neurological Exam Neurological exam: Alert, CN II-XII Intact, Oriented x3 - Expanded Neurological Exam Expanded Speech: Fluid Speech Cranial nerves: EOM's Intact: Normal, Facial Sensation: Normal, Tongue Deviation: Normal Cerebellar Function: Finger to Nose: Normal, Heel to [place]: Normal, Romberg: Normal Upper motor neuron: Babinski Sign: Normal, Enmanuel Neglect: Normal, Pronator Drift: Normal, Sensory Extinction: Normal Sensory exam: Lower Extremity 2 Point Discrimination: Normal, Lower Extremity Light Touch: Normal, Lower Extremity Pin Prick: Normal, Upper Extremity 2 Point Discrimination: Normal, Upper Extremity Light Touch: Normal, Upper Extremity Pin Prick: Normal Neuro motor strength exam: Left Upper Extremity: 4, Right Upper Extremity: 4, Left Lower Extremity: 4, Right Lower Extremity: 4 DTR: Patellar Left: 0 Coma Scale Eye Opening: SPONTANEOUS Coma Scale Motor Response: OBEYS COMMANDS - Psychiatric Exam Psychiatric exam: Normal Affect, Normal Mood - Skin Skin Exam: Normal Color, Warm Results - Vital Signs Recent Vital Signs: Last Vital Signs Temp 97.5 F L 08/18/18 06:00 Pulse 60 08/18/18 06:00 Resp 20 08/18/18 06:00 BP 123/80 08/18/18 06:00 Pulse Ox 99 08/18/18 06:00 - Labs Result Diagrams: 08/18/18 06:00 08/18/18 06:00 Labs: Laboratory Results - last 24 hr 08/17/18 08/17/18 08/17/18 15:13 15:13 18:45 WBC 4.1 L RBC 4.86 Hgb 14.1 Hct 42.4 MCV 87.2 MCH 29.0 MCHC 33.3 RDW 12.4 Plt Count 258 MPV 12.9 H Gran % 38.7 L Lymph % (Auto) 51.2 H [place] % (Auto) 6.4 H Eos % (Auto) 2.2 Baso % (Auto) 1.5 Gran # 1.57 Lymph # (Auto) 2.1 [place] # (Auto) 0.3 Eos # (Auto) 0.1 Baso # (Auto) 0.06 Sodium 140 Potassium 3.8 Chloride 104 Carbon Dioxide 26 Anion Gap 13 BUN 6 L Creatinine 0.6 L Est GFR ( Amer) > 60 Est GFR (Non-Af Amer) > 60 Random Glucose 101 Calcium 9.8 Phosphorus 3.6 Magnesium 2.0 Total Bilirubin 0.4 AST 26 ALT 32 Alkaline Phosphatase 76 Troponin I Total Protein 8.2 Albumin 4.6 Globulin 3.6 Albumin/Globulin Ratio 1.3 Triglycerides Cholesterol LDL Cholesterol Direct HDL Cholesterol TSH 3rd Generation Urine Color Light yellow Urine Appearance Clear Urine pH 7.0 Ur Specific [place] 1.010 Urine Protein Negative Urine Glucose (UA) Negative Urine Ketones Negative Urine Blood Negative Urine Nitrate Negative Urine Bilirubin Negative Urine Urobilinogen 0.2 Ur Leukocyte Esterase Negative 08/17/18 08/18/18 08/18/18 19:00 06:00 06:00 WBC 4.4 L RBC 4.43 Hgb 12.4 Hct 39.0 MCV 88.0 MCH 28.0 MCHC 31.8 RDW 12.5 Plt Count 244 MPV 12.5 H Gran % 28.1 L Lymph % (Auto) 58.4 H [place] % (Auto) 8.7 H Eos % (Auto) 3.4 Baso % (Auto) 1.4 Gran # 1.23 L Lymph # (Auto) 2.6 [place] # (Auto) 0.4 Eos # (Auto) 0.2 Baso # (Auto) 0.06 Sodium 140 Potassium 4.3 Chloride 108 H Carbon Dioxide 27 Anion Gap 9 L BUN 7 Creatinine 0.7 Est GFR ( Amer) > 60 Est GFR (Non-Af Amer) > 60 Random Glucose 96 Calcium 9.4 Phosphorus Magnesium Total Bilirubin 0.3 AST 20 ALT 31 Alkaline Phosphatase 60 Troponin I < 0.01 Total Protein 6.9 Albumin 3.9 Globulin 3.0 Albumin/Globulin Ratio 1.3 Triglycerides 77 Cholesterol 180 LDL Cholesterol Direct 105 HDL Cholesterol 47 TSH 3rd Generation Urine Color Urine Appearance Urine pH Ur Specific [place] Urine Protein Urine Glucose (UA) Urine Ketones Urine Blood Urine Nitrate Urine Bilirubin Urine Urobilinogen Ur Leukocyte Esterase 08/18/18 06:00 WBC RBC Hgb Hct MCV MCH MCHC RDW Plt Count MPV Gran % Lymph % (Auto) [place] % (Auto) Eos % (Auto) Baso % (Auto) Gran # Lymph # (Auto) [place] # (Auto) Eos # (Auto) Baso # (Auto) Sodium Potassium Chloride Carbon Dioxide Anion Gap BUN Creatinine Est GFR ( Amer) Est GFR (Non-Af Amer) Random Glucose Calcium Phosphorus Magnesium Total Bilirubin AST ALT Alkaline Phosphatase Troponin I Total Protein Albumin Globulin Albumin/Globulin Ratio Triglycerides Cholesterol LDL Cholesterol Direct HDL Cholesterol TSH 3rd Generation 5.74 H Urine Color Urine Appearance Urine pH Ur Specific [place] Urine Protein Urine Glucose (UA) Urine Ketones Urine Blood Urine Nitrate Urine Bilirubin Urine Urobilinogen Ur Leukocyte Esterase Assessment & Plan - Assessment and Plan (Free Text) Assessment: B/L Upper and Lower extremity paresthesias -r/o Vitamin B12, Folate deficiency -Vitamin B12 supplementation since patient is vegan Headaches -Most likely tension headache -Toradol -Magnesium oxide 400 mg BID -Patient can follow up with a neurologist as outpatient for further management Syncopal episodes -CTA head and neck reveal no abnormalities -Recommend linq cardiac device to monitor for arrythmias -Follow up with Primary care physician and church business administrator. Discussed extensively with patient that she needs to establish care with a PMD so she can follow up with a church business administrator. Discussed with patient that a linq monitor would help detect abnormalities that we may not have been able to detect while here inhouse since the duration is longer. Discussed plan in full detail with patient and her family. <Korya,Rhett - Last Filed: 08/20/18 13:43> Results - Vital Signs Recent Vital Signs: Last Vital Signs Temp 97.5 F L 08/18/18 06:00 Pulse 63 08/18/18 10:00 Resp 20 08/18/18 06:00 BP 123/80 08/18/18 06:00 Pulse Ox 99 08/18/18 06:00 - Labs Result Diagrams: 08/18/18 06:00 08/18/18 06:00 Attending/Attestation - Attestation I have personally seen and examined this patient.: Yes I have fully participated in the care of the patient.: Yes I have reviewed all pertinent clinical information: Yes Notes (Text): I agree with the assessment and plan: -Follow up with Primary care physician and church business administrator. Discussed extensively with patient that she needs to establish care with a PMD so she can follow up with a church business administrator. Discussed with patient that a linq monitor would help detect abnormalities that we may not have been able to detect while here inhouse since the duration is longer.
[2018-08-18 10:40] VITALS: PULSE 63
[2018-08-18 12:58] LABS: FOLATE > 20.0 ng/mL
--- NOTE | 2018-08-18 13:53 | CT ---
Date of service: 08/18/2018 PROCEDURE: CT Cervical Spine without contrast HISTORY: Neuropathy Evaluation COMPARISON: None available. TECHNIQUE: Axial computed tomography images were obtained of the cervical spine without the use of intravenous contrast. Coronal and sagittal reformatted images were created and reviewed. Radiation dose: Total exam DLP = 575.48 mGy-cm. This CT exam was performed using one or more of the following dose reduction techniques: Automated exposure control, adjustment of the mA and/or kV according to patient size, and/or use of iterative reconstruction technique. FINDINGS: VERTEBRAE: No fracture. Normal alignment. No destructive bony lesion. DISCS/SPINAL CANAL/NEURAL FORAMINA: No significant central canal or neural foraminal stenosis. Disc degeneration at C5-6 with anterior osteophytes PARASPINAL SOFT TISSUES: Unremarkable. OTHER FINDINGS: None. IMPRESSION: Unremarkable CT of the cervical spine.
[2018-08-18] MEDS ORDERED: Magnesium Oxide 400 mg Tab UD PO SCH (14:30)
--- NOTE | 2018-08-18 15:39 | CP.PCM.DIS ---
<Trey Roman - Last Filed: 08/18/18 15:47> Provider - Provider Date of Admission: 08/17/18 17:02 Attending physician: Max Mccoy MD Primary care physician: NO PRIMARY CARE PROVIDER Consults: 08/17/18 17:03 Physician Consult Stat Comment: Consulting Provider: Rhett Bull Consulting Physician: Rhett Bull Reason for Consult: parasthesias Time Spent in preparation of Discharge (in minutes): 35 Hospital Course - Lab Results Lab Results: Most Recent Lab Values WBC 4.4 10^3/uL (4.5-11.0) L 08/18/18 06:00 RBC 4.43 10^6/uL (3.5-6.1) 08/18/18 06:00 Hgb 12.4 g/dL (12.0-16.0) 08/18/18 06:00 Hct 39.0 % (36.0-48.0) 08/18/18 06:00 MCV 88.0 fl (80.0-105.0) 08/18/18 06:00 MCH 28.0 pg (25.0-35.0) 08/18/18 06:00 MCHC 31.8 g/dl (31.0-37.0) 08/18/18 06:00 RDW 12.5 % (11.5-14.5) 08/18/18 06:00 Plt Count 244 10^3/uL (120.0-450.0) 08/18/18 06:00 MPV 12.5 fl (7.0-11.0) H 08/18/18 06:00 Gran % 28.1 % (50.0-68.0) L 08/18/18 06:00 Lymph % (Auto) 58.4 % (22.0-35.0) H 08/18/18 06:00 [place] % (Auto) 8.7 % (1.0-6.0) H 08/18/18 06:00 Eos % (Auto) 3.4 % (1.5-5.0) 08/18/18 06:00 Baso % (Auto) 1.4 % (0.0-3.0) 08/18/18 06:00 Gran # 1.23 (1.4-6.5) L 01/11/19 06:00 Lymph # (Auto) 2.6 (1.2-3.4) 08/18/18 06:00 [place] # (Auto) 0.4 (0.1-0.6) 08/18/18 06:00 Eos # (Auto) 0.2 (0.0-0.7) 08/18/18 06:00 Baso # (Auto) 0.06 K/mm3 (0.0-2.0) 08/18/18 06:00 Sodium 140 mmol/L (132-148) 08/18/18 06:00 Potassium 4.3 mmol/L (3.6-5.0) 08/18/18 06:00 Chloride 108 mmol/L (98-107) H 08/18/18 06:00 Carbon Dioxide 27 mmol/L (21-33) 08/18/18 06:00 Anion Gap 9 (10-20) L 08/18/18 06:00 BUN 7 mg/dL (7-21) 08/18/18 06:00 Creatinine 0.7 mg/dl (0.7-1.2) 08/18/18 06:00 Est GFR ( Amer) > 60 08/18/18 06:00 Est GFR (Non-Af Amer) > 60 08/18/18 06:00 Random Glucose 96 mg/dL (70-110) 08/18/18 06:00 Hemoglobin A1c 5.9 % (4.2-6.5) 08/18/18 06:00 Calcium 9.4 mg/dL (8.4-10.5) 08/18/18 06:00 Phosphorus 3.6 mg/dL (2.5-4.5) 08/17/18 15:13 Magnesium 2.0 mg/dL (1.7-2.2) 08/17/18 15:13 Total Bilirubin 0.3 mg/dL (0.2-1.3) 08/18/18 06:00 AST 20 U/L (14-36) 08/18/18 06:00 ALT 31 U/L (7-56) 08/18/18 06:00 Alkaline Phosphatase 60 U/L (38-126) 08/18/18 06:00 Troponin I < 0.01 ng/mL 08/17/18 19:00 Total Protein 6.9 g/dL (5.8-8.3) 08/18/18 06:00 Albumin 3.9 g/dL (3.0-4.8) 08/18/18 06:00 Globulin 3.0 gm/dL 08/18/18 06:00 Albumin/Globulin Ratio 1.3 (1.1-1.8) 08/18/18 06:00 Triglycerides 77 mg/dL (35-160) 08/18/18 06:00 Cholesterol 180 mg/dL (130-200) 08/18/18 06:00 LDL Cholesterol Direct 105 mg/dL (0-129) 08/18/18 06:00 HDL Cholesterol 47 mg/dL (29-60) 08/18/18 06:00 Vitamin B12 430 pg/mL (239-931) 08/18/18 06:00 Folate > 20.0 ng/mL 08/17/18 19:00 TSH 3rd Generation 5.74 mIU/mL (0.46-4.68) H 08/18/18 06:00 Urine Color Light yellow (YELLOW) 08/17/18 18:45 Urine Appearance Clear (CLEAR) 08/17/18 18:45 Urine pH 7.0 (4.7-8.0) 08/17/18 18:45 Ur Specific [place] 1.010 (1.005-1.035) 08/17/18 18:45 Urine Protein Negative mg/dL (<30 mg/dL) 08/17/18 18:45 Urine Glucose (UA) Negative mg/dL (NEGATIVE) 08/17/18 18:45 Urine Ketones Negative mg/dL (NEGATIVE) 08/17/18 18:45 Urine Blood Negative (NEGATIVE) 08/17/18 18:45 Urine Nitrate Negative (NEGATIVE) 08/17/18 18:45 Urine Bilirubin Negative (NEGATIVE) 08/17/18 18:45 Urine Urobilinogen 0.2 E.U./dL (<1 E.U./dL) 08/17/18 18:45 Ur Leukocyte Esterase Negative Dick/uL (NEGATIVE) 08/17/18 18:45 - Hospital Course Hospital Course: 58 year old female with past medical history of CAD s/p cardiac cath and herniated cervical disc presenting with chief complaint of syncope that happened a week prior. Patient states that she was walking to her kitchen when she felt lightheaded and lost consciousness. She remembers waking up on the floor and feeling weak for several hours after. She denies tongue biting, bladder or bowel incontinence. She admits to occasionally seeing flashing lights, headache, numbness and tingling of upper and lower extremities. Denies any aggravating or alleviating factors. Denies fever, chills, chest pain, shortness of breath, abdominal pain, constipation, diarrhea, dysuria. As per family at bedside patient has been checking her blood pressure the past few days and SBP has been in 160s. CT head, CTA of head and neck, and Ct of cervical spine were unremarkable. The patient underwent an echocardiogram that was not interpreted. The patient's Vitamin B12 and folate were also within normal limits. Neurology was consulted and recommended the patient get a Linq cardiac device to monitor for arrhythmias as well as Magnesium Oxide 400 mg BID. The patient was discharged with the below written instructions and recommendations. - Date & Time of H&P Date of H&P: 08/18/18 Time of H&P: 15:49 Discharge Exam - Head Exam Head Exam: ATRAUMATIC, NORMOCEPHALIC - Eye Exam Eye Exam: EOMI, Normal appearance, PERRL - Respiratory Exam Respiratory Exam: Clear to PA & Lateral, NORMAL BREATHING PATTERN - Cardiovascular Exam Cardiovascular Exam: RRR, +S1, +S2 - Extremities Exam Extremities exam: normal inspection - Neurological Exam Neurological exam: Alert, CN II-XII Intact, Oriented x3 - Psychiatric Exam Psychiatric exam: Normal Affect, Normal Mood - Skin Skin Exam: Dry, Intact, Normal Color, Warm Discharge Plan - Discharge Medications Prescriptions: Magnesium Oxide [Magnesium] 400 mg PO BID #60 capsule - Follow Up Plan Condition: STABLE Disposition: HOME/ ROUTINE Instructions: Chest Pain (DC), Paresthesias (DC), Hand Numbness Additional Instructions: Please follow up with your primary care doctor within 3-5 days of discharge. If you do not have one you can make an appointment with our [facility]. Please take a multivitamin daily which is over the counter. Recommend to follow up with cardiology as outpatient for possible holter monitor. You were sent a prescription of Magnesium oxide 400mg ONE PILL TWICE PER DAY. If your symptoms return, please go to the nearest emergency department. [place]errals: [facility] [place] [facility] [place] [facility] [place] - Follow up with primary PCP,NO [Primary Care Provider] - Follow up with primary <Rangasamy,Ajantha - Last Filed: 08/18/18 17:48> Provider - Provider Date of Admission: 08/17/18 17:02 Attending physician: Max Mccoy MD Primary care physician: NO PRIMARY CARE PROVIDER Consults: 08/17/18 17:03 Physician Consult Stat Comment: Consulting Provider: Rhett Bull Consulting Physician: Rhett Bull Reason for Consult: [facility] Course - Lab Results Lab Results: Most Recent Lab Values WBC 4.4 10^3/uL (4.5-11.0) L 08/18/18 06:00 RBC 4.43 10^6/uL (3.5-6.1) 08/18/18 06:00 Hgb 12.4 g/dL (12.0-16.0) 08/18/18 06:00 Hct 39.0 % (36.0-48.0) 08/18/18 06:00 MCV 88.0 fl (80.0-105.0) 08/18/18 06:00 MCH 28.0 pg (25.0-35.0) 08/18/18 06:00 MCHC 31.8 g/dl (31.0-37.0) 08/18/18 06:00 RDW 12.5 % (11.5-14.5) 08/18/18 06:00 Plt Count 244 10^3/uL (120.0-450.0) 08/18/18 06:00 MPV 12.5 fl (7.0-11.0) H 08/18/18 06:00 Gran % 28.1 % (50.0-68.0) L 08/18/18 06:00 Lymph % (Auto) 58.4 % (22.0-35.0) H 08/18/18 06:00 [place] % (Auto) 8.7 % (1.0-6.0) H 08/18/18 06:00 Eos % (Auto) 3.4 % (1.5-5.0) 08/18/18 06:00 Baso % (Auto) 1.4 % (0.0-3.0) 08/18/18 06:00 Gran # 1.23 (1.4-6.5) L 08/18/18 06:00 Lymph # (Auto) 2.6 (1.2-3.4) 08/18/18 06:00 [place] # (Auto) 0.4 (0.1-0.6) 08/18/18 06:00 Eos # (Auto) 0.2 (0.0-0.7) 08/18/18 06:00 Baso # (Auto) 0.06 K/mm3 (0.0-2.0) 08/18/18 06:00 Sodium 140 mmol/L (132-148) 08/18/18 06:00 Potassium 4.3 mmol/L (3.6-5.0) 08/18/18 06:00 Chloride 108 mmol/L (98-107) H 08/18/18 06:00 Carbon Dioxide 27 mmol/L (21-33) 08/18/18 06:00 Anion Gap 9 (10-20) L 08/18/18 06:00 BUN 7 mg/dL (7-21) 08/18/18 06:00 Creatinine 0.7 mg/dl (0.7-1.2) 08/18/18 06:00 Est GFR ( Amer) > 60 08/18/18 06:00 Est GFR (Non-Af Amer) > 60 08/18/18 06:00 Random Glucose 96 mg/dL (70-110) 08/18/18 06:00 Hemoglobin A1c 5.9 % (4.2-6.5) 08/18/18 06:00 Calcium 9.4 mg/dL (8.4-10.5) 08/18/18 06:00 Phosphorus 3.6 mg/dL (2.5-4.5) 08/17/18 15:13 Magnesium 2.0 mg/dL (1.7-2.2) 08/17/18 15:13 Total Bilirubin 0.3 mg/dL (0.2-1.3) 08/18/18 06:00 AST 20 U/L (14-36) 08/18/18 06:00 ALT 31 U/L (7-56) 08/18/18 06:00 Alkaline Phosphatase 60 U/L (38-126) 08/18/18 06:00 Troponin I < 0.01 ng/mL 08/17/18 19:00 Total Protein 6.9 g/dL (5.8-8.3) 08/18/18 06:00 Albumin 3.9 g/dL (3.0-4.8) 08/18/18 06:00 Globulin 3.0 gm/dL 08/18/18 06:00 Albumin/Globulin Ratio 1.3 (1.1-1.8) 08/18/18 06:00 Triglycerides 77 mg/dL (35-160) 08/18/18 06:00 Cholesterol 180 mg/dL (130-200) 08/18/18 06:00 LDL Cholesterol Direct 105 mg/dL (0-129) 08/18/18 06:00 HDL Cholesterol 47 mg/dL (29-60) 08/18/18 06:00 Vitamin B12 430 pg/mL (239-931) 08/18/18 06:00 Folate > 20.0 ng/mL 08/17/18 19:00 TSH 3rd Generation 5.74 mIU/mL (0.46-4.68) H 08/18/18 06:00 Urine Color Light yellow (YELLOW) 08/17/18 18:45 Urine Appearance Clear (CLEAR) 08/17/18 18:45 Urine pH 7.0 (4.7-8.0) 08/17/18 18:45 Ur Specific [place] 1.010 (1.005-1.035) 08/17/18 18:45 Urine Protein Negative mg/dL (<30 mg/dL) 08/17/18 18:45 Urine Glucose (UA) Negative mg/dL (NEGATIVE) 08/17/18 18:45 Urine Ketones Negative mg/dL (NEGATIVE) 08/17/18 18:45 Urine Blood Negative (NEGATIVE) 08/17/18 18:45 Urine Nitrate Negative (NEGATIVE) 08/17/18 18:45 Urine Bilirubin Negative (NEGATIVE) 08/17/18 18:45 Urine Urobilinogen 0.2 E.U./dL (<1 E.U./dL) 08/17/18 18:45 Ur Leukocyte Esterase Negative Dick/uL (NEGATIVE) 08/17/18 18:45 Attending/Attestation - Attestation I have personally seen and examined this patient.: Yes I have fully participated in the care of the patient.: Yes I have reviewed all pertinent clinical information, including history, physical exam and plan: Yes Notes (Text): 08/18/18 17:38 Attending note; Patient seen and examined with resident. Patient is alert and awake. Complaining of nonspecific numbness. Denies any neck pain. No orthostatic blood pressure changes noted. Tolerating diet well. Patient is a 58 year old female with past medical history herniated cervical disc presenting with chief complaint of syncope that happened a week prior. Patient states that she was walking to her kitchen when she felt lightheaded and lost consciousness. Patient has complained of nonspecific numbness and weakness all over her body. 1. Syncope; patient complains of generalized nonspecific symptoms. Questionable loss of consciousness. No history of injury, tongue bite or incontinence. CT head is negative. CT of head and neck is negative. Neurology evaluation appreciated. Possible anxiety related issues suspected. 2. No hypertension noted. No arrhythmia. EKG showed normal sinus rhythm. Echocardiogram normal. 3. Leg pain; lower extremity Doppler is negative. CT of the cervical spine is negative for any acute findings. Physical therapy evaluation appreciated. Discharge patient home today. Outpatient psychiatric evaluation recommended. The diagnosis, follow-up plan discussed with patient and patient's brother in detail. Upon discharge patient will follow-up with PMD Dr. Ibarra. 08/18/18 17:46 08/18/18 17:47
--- NOTE | 2018-08-18 15:52 | CARD ---
APPROVED REPORT Date of service: 08/18/2018 EXAM: Two-dimensional and M-mode echocardiogram with Doppler and color Doppler. INDICATION BUBBLE STUDY SYNCOPE VS.TIA 2D DIMENSIONS Left Atrium (2D)3.4 (1.6-4.0cm)IVSd0.9 (0.7-1.1cm) LVDd4.3 (3.9-5.9cm)PWd0.9 (0.7-1.1cm) LVDs2.7 (2.5-4.0cm)FS (%) 36.8 % LVEF (%)67.0 (>50%) M-Mode DIMENSIONS Aortic Root3.10 (2.2-3.7cm)Aortic Cusp Exc.1.60 (1.5-2.0cm) Aortic Valve AoV Peak Hjkdrjwm926.0cm/Maik Peak GR.12mmHg Mitral Valve MV E Qbunkpiv649.0cm/sMV A Rhxyypoj93.0cm/sE/A ratio1.6 TDI Lateral E' Peak V12.00cm/sMedial E' Peak V13.20cm/sE/Lateral E'8.9 E/Medial E'8.1 Pulmonary Valve PV Peak Ovrbktki82.2cm/sPV Peak Grad.3mmHg Tricuspid Valve TR Peak Daydennt777wn/sRAP [id number] Peak Gr.21mmHg [id number] LEFT VENTRICLE The left ventricle is normal size. There is normal left ventricular wall thickness. The left ventricular function is normal. The left ventricular ejection fraction is within the normal range. There is normal LV segmental wall motion. The left ventricular diastolic function is normal. RIGHT VENTRICLE The right ventricle is normal size. There is normal right ventricular wall thickness. The right ventricular systolic function is normal. ATRIA The left atrium size is normal. The right atrium size is normal. The interatrial septum is intact AORTIC VALVE The aortic valve is normal in structure. No aortic regurgitation is present. There is no aortic valvular stenosis. MITRAL VALVE The mitral valve is normal in structure. Mitral regurgitation is trace to mild. TRICUSPID VALVE There is trace tricuspid regurgitation. PULMONIC VALVE The pulmonary valve is normal in structure. There is no pulmonic valvular regurgitation. GREAT VESSELS The aortic root is normal in size. The IVC is normal in size and collapses >50% with inspiration. <Conclusion> There is normal left ventricular wall thickness. The left ventricular function is normal. The left ventricular ejection fraction is within the normal range. There is normal LV segmental wall motion. The left ventricular diastolic function is normal. Mitral regurgitation is trace to mild. The interatrial septum is intact
--- NOTE | 2018-08-19 07:19 | PCM.EEG ---
Electroencephalogram Report - Electroencephalogram Report Procedure Date: 08/18/18 Medication: Meclizine, Ketorolac Interpretation: Technical Information: This was a 16 -channel EEG, 1-channel EKG routine EEG performed using an CRESCEL machine. Electrodes were applied using the 10/20 international placement system. Start 9;40 End 10;25 Total 45 min Clinical Information: numbness/seizures. During resting wakefulness there was a symmetric posterior dominant rhythm at 8.5-9.5 Hz, 30-50 uV, which was reactive to eye opening and closing. Drowsiness (10;01) was associated with fragmentation of the posterior dominant rhythm and with slow roving eye movements. Light sleep (10;05) was recorded and was characterized by central vertex waves, sleep spindles, and bilateral theta slowing. Hyperventilation was not performed. Photic stimulation was performed and there were no changes on the record. Focal abnormality; none ECG was associated with a normal sinus rhythm. . Impression: This is a normal awake drowsy and sleep electroencephalogram
== END 2018-08-18 16:50 | disposition home or self-care (01) ==
LOC: ED 13:35 → ERH 17:02 → 3RNO 20:57
PROVIDERS: ADMIT Internal Medicine; ATTEND Internal Medicine
DX: R55 Syncope and collapse (principal); R20.2 Paresthesia of skin; I25.10 Atherosclerotic heart disease of native coronary artery without angina pectoris; Z82.3 Family history of stroke; Z82.49 Family history of ischemic heart disease and other diseases of the circulatory system
CPT/HCPCS: 36415; 70450; 70496; 70498; 72125; 80053; 80061; 81003; 82607; 82746; 83036; 83735; 84100; 84443; 84484; 85025; 87086; 93005; 93306; 93970; 95812; 97161; 99285; G0378; G8978; G8979; G8980; J1650; J7030; Q9967